=== PATIENT | female | born 1965 ===

== ENCOUNTER 2022-08-12 09:06 | Emergency (ER) | payer BC ==
[2022-08-12] MEDS ORDERED: Ondansetron 4 MG/2 ML SDV IVPUSH ONE (09:37)
[2022-08-12] MEDS ORDERED: Sodium Chloride 0.9% 1,000 ML IV ONE ×2 (09:37→11:02)
[2022-08-12] MEDS ORDERED: Sodium Chloride 0.9% 10 ML Syringe FLUSH PRN (09:37)
[2022-08-12 09:55] LABS: ESTIMATED GFR 102 mL/min (>60)
[2022-08-12] MEDS ORDERED: Prochlorperazine 10 MG/2 ML SDV IVPUSH ONE (10:21)
[2022-08-12] MEDS ORDERED: diphenhydrAMINE 50 MG/ML SDV IVPUSH ONE (10:21)
[2022-08-12] MEDS ORDERED: Potassium Chloride 20 MEQ Tab.ER PO ONE (12:22)
== END 2022-08-12 12:44 | disposition home or self-care (01) ==
LOC: FB.ED 09:06
DX: B34.9 Viral infection, unspecified (principal); E86.0 Dehydration; R11.2 Nausea with vomiting, unspecified; R19.7 Diarrhea, unspecified; Z86.16 Personal history of COVID-19; Z20.822 Contact with and (suspected) exposure to COVID-19
CPT/HCPCS: 36415; 80053; 81001; 83605; 83690; 83735; 85025; 86140; 96361; 96374; 96375; 99284-25; A9270-GY; J0780; J1200; J2405; J3490; J7030; U0002